=== PATIENT | female | born 1970 | race Two or more races ===

== ENCOUNTER 2024-12-19 07:43 | Emergency (ER) | payer OTHER ==
[~2024-12-19] VITALS: Ht 162.6 cm; Wt 69.9 kg
[2024-12-19] MEDS ORDERED: ENDOMETRIN100 MG VG (08:01)
[2024-12-19] MEDS ORDERED: PROMETRIUM200 MG (08:01)
[2024-12-19] MEDS ORDERED: METOCLOPRAMIDE HCL 5 MG/ML VIAL IM ONE (10:30)
[2024-12-19] MEDS ORDERED: ACETAMINOPHEN 500 MG GEL..CAP PO ONE (10:30)
[2024-12-19 11:03] LABS: BASO % 0.3 % (0.1-1.2); EOS # 0.03 (0.04-0.54); EOS % 0.5 % (0.7-7.0); LYMPH # 0.77 (1.18-3.74); LYMPH % 13.2 % (19.3-53.1); MEAN PLATELET VOLUME 10.50 fl (9.4-12.4); MONO # 0.58 (0.24-0.82); MONO % 9.9 % (4.7-12.5); NEUT # 4.41 (1.56-6.13); NEUT % 75.8 % (34.0-71.1); RED CELL DISTRIBUTION WIDTH 12.1 % (11.6-14.4)
[2024-12-19 11:32] LABS: ALT/SGPT 22.0 U/L (12-78); AST/SGOT 13.0 U/L (15-37); BILIRUBIN TOTAL 0.4 mg/dL (0.3-1.2); BUN CREA RATIO 14.0 (7.0-25.0); CREATININE SERUM 0.7 mg/dL (0.55-1.02); GFR 86.87; GLOBULINA 3.7 G/DL (2.4-3.5); GLUCOSE FASTING 94.0 mg/dL (65-100); OSMOLALITY SERUM 273.0 MOSM/KG (275-295)
[2024-12-19 11:39] LABS: COVID-19 AG NEGATIVE (NEGATIVE)
[2024-12-19] MEDS ORDERED: TUSSIN DM LIQU118 ML PO (12:05)
[2024-12-19] MEDS ORDERED: OSEL75CA PO (12:05)
[2024-12-19] MEDS ORDERED: OSELTAMIVIR PHOSPHATE 75 MG CAPSULE PO ONE (12:15)
== END 2024-12-19 12:19 ==
LOC: ER 08:10
PROVIDERS: Preventive Medicine Public Health & General Preventive Medicine
DX: J10.1 Influenza due to other identified influenza virus with other respiratory manifestations (principal); R51.9 Headache, unspecified; Z20.822 Contact with and (suspected) exposure to COVID-19; Z88.2 Allergy status to sulfonamides
CPT/HCPCS: 36415; 96372; 99282; J2765